=== PATIENT | female | born 1995 | race Caucasian/White ===

== ENCOUNTER 2020-05-14 14:43 | Outpatient (RCR) | payer OTHER, SELFPAY | END 2020-08-10 23:59 | disposition home or self-care (01) | LOC: ANHLAB 14:43 | PROVIDERS: Visit Provider Obstetrics & Gynecology | DX: Z87.59 Personal history of other complications of pregnancy, childbirth and the puerperium (principal) | CPT/HCPCS: 36415; 84702 ==

== ENCOUNTER 2020-10-18 15:29 | Outpatient (CLI) | payer OTHER, SELFPAY ==
[2020-10-18 16:01] VITALS: BP 115/79; PULSE 82
[2020-10-18 16:16] VITALS: BP 111/75; BP 115/79; PULSE 79; PULSE 84
== END 2020-10-18 16:15 | disposition home or self-care (01) ==
LOC: ANHOBOP 15:36 → ANHOBPP 15:36
PROVIDERS: Visit Provider Obstetrics & Gynecology
DX: O41.8X90 Other specified disorders of amniotic fluid and membranes, unspecified trimester, not applicable or unspecified (principal); Z3A.00 Weeks of gestation of pregnancy not specified
CPT/HCPCS: 59025; 84112; 99199

== ENCOUNTER 2020-10-25 15:12 | Outpatient (CLI) | payer OTHER, SELFPAY ==
[2020-10-25 16:49] LABS: Hematocrit 34.7 % (37.0-47.0); Hemoglobin 11.5 g/dL (12.0-15.0); Mean Platelet Volume 9.7 fl (7.4-10.4); Platelet Count Result 248 k/mm3 (150-375)
[2020-10-25 16:57] LABS: Glucose 1 Hour PP 50gm Dose 121 mg/dL
[2020-10-25 17:39] LABS: HIV 1/2 Ab P24 Ag Result Negative (Negative)
[2020-10-25 18:20] LABS: Rubella IgG Antibody 44.6 IU/ML
[2020-10-25 18:35] LABS: Hepatitis B Surface Anti Res Negative; Hepatitis C Virus Antibody Negative (Negative)
[2020-10-26 09:54] LABS: Hepatitis B Surface Antigen Negative (Negative)
[2020-10-26 10:09] LABS: Rapid Plasma Reagin Non-Reactive (NonReactive)
== END 2020-10-25 15:13 | disposition home or self-care (01) ==
LOC: ANHLAB 15:13
PROVIDERS: Visit Provider Obstetrics & Gynecology
DX: Z36.89 Encounter for other specified antenatal screening (principal); Z3A.00 Weeks of gestation of pregnancy not specified
CPT/HCPCS: 36415; 82947; 85014; 85018; 85049; 86592; 86703; 86706; 86762; 86803; 86850; 86900; 86901; 87340; G0432

== ENCOUNTER 2020-12-15 16:20 | Outpatient (CLI) | payer OTHER, SELFPAY ==
[2020-12-15 16:40] VITALS: BP 141/90; PULSE 86; RESP 16; TEMP 36.7
[2020-12-15 16:45] VITALS: BP 136/88; PULSE 86; RESP 16
[2020-12-15 17:01] LABS: Basophils Absolute Auto 0.1 K/mm3 (0.0-0.1); Basophils Percent Auto 0.6 % (0.2-1.2); Eosinophils Absolute Auto 0.1 K/mm3 (0-0.3); Eosinophils Percent Auto 0.7 % (0-4.4); Hemoglobin 11.7 g/dL (12.0-15.0); Immature Granulocyte Absolute 0.09 K/mm3 (0.00-0.031); Immature Granulocyte Percent A 0.9 % (0-0.5); Lymphocytes Percent Auto 21.9 % (18.3-44.2); Mean Corpuscular HGB Conc 33.4 g/dl (32-36); Mean Corpuscular Hemoglobin 29.7 pg (26-34); Mean Corpuscular Volume 88.8 fl (80-100); Monocytes Absolute Auto 0.7 K/mm3 (0.1-0.6); Monocytes Percent Auto 6.6 % (2.6-8.5); Neutrophils Absolute Auto 7.3 K/mm3 (1.3-6.7); Neutrophils Percent Auto 69.3 % (45.5-73.1); Platelet Count Result 235 k/mm3 (150-375); Red Blood Count 3.94 M/mm3 (4.2-5.4); Red Cell Distribution Width 13.3 % (11.5-14.5); White Blood Count 10.5 K/mm3 (4.5-10.0)
[2020-12-15 17:13] LABS: Alanine Aminotransferase 14 U/L (4-35); Albumin Level 3.6 g/dL (3.5-5.1); Alkaline Phosphatase 126 U/L (38-126); Anion Gap 7 mmol/L (8-16); Aspartate Amino Transferase 20 U/L (14-36); Bilirubin,Total 0.3 mg/dL (0.2-1.3); Blood Urea Nitrogen 8 mg/dL (7-17); Calcium 8.7 mg/dL (8.4-10.2); Carbon Dioxide 22 mmol/L (22-30); Chloride 107 mmol/L (98-107); Estimated Glomerular Filt Rate > 60; Glucose 95 mg/dL (65-105); Potassium 3.9 mmol/L (3.4-5.0); Sodium 136 mmol/L (137-145); Uric Acid 5.8 mg/dL (2.5-7.5)
[2020-12-15 17:16] LABS: Add Urine Microscopic? YES; Appearance Urine Cloudy (Clear); Bacteria Urine 4+ /hpf; Bilirubin Urine Negative (Negative); Blood Urine Negative (Negative); Color Urine Yellow (Yellow); Glucose Urine UA Negative (Negative); Ketones Urine Negative (Negative); Leukocyte Esterase Ur 3+ LEU/UL (NEGATIVE); Nitrate Urine Negative (Negative); Protein Urine Negative (Negative); Specific Grav Ur 1.008 (1.001-1.035); Squamous Epithelial Cell Urine Many /hpf (Few); Transitional Epi Cells Urine Rare /hpf (None Seen); Urobilinogen Urine Negative mg/dL (<2.0)
--- NOTE | 2020-12-15 17:25 | PC.NURSE ---
called Dr. Baker and updated pt BP and PIH lab result. discharge order received
[2020-12-15 17:30] VITALS: BP 128/81; PULSE 86
[2020-12-15 17:31] LABS: Creatinine Urine 42.3 mg/dL; Total Protein Urine Random 14 mg/dL; Ur Ttl Prot Creatinine Ratio 0.33 mg/mg (0-0.20)
== END 2020-12-15 17:30 | disposition home or self-care (01) ==
LOC: ANHOBOP 16:23
PROVIDERS: Visit Provider Obstetrics & Gynecology
DX: O13.9 Gestational [pregnancy-induced] hypertension without significant proteinuria, unspecified trimester (principal); Z3A.00 Weeks of gestation of pregnancy not specified
CPT/HCPCS: 36415; 59025; 80053; 81001; 82570; 84156; 84550; 85025; 87086

== ENCOUNTER 2020-12-24 13:35 | Outpatient (RCR) | payer OTHER, SELFPAY ==
[2020-12-24 14:20] VITALS: BP 126/75; PULSE 93
== END 2020-12-28 08:04 | disposition home or self-care (01) ==
LOC: ANHOBOP 13:35
PROVIDERS: Visit Provider Advanced Practice Midwife
DX: O13.3 Gestational [pregnancy-induced] hypertension without significant proteinuria, third trimester (principal); Z3A.36 36 weeks gestation of pregnancy
CPT/HCPCS: 59025

== ENCOUNTER 2020-12-27 05:08 | Inpatient (IN) | payer OTHER, SELFPAY ==
[2020-12-27] VITALS (96 sets, daily range): BP systolic 98–157; BP diastolic 63–119; PULSE 55–95; RESP 12–18; TEMP 36.3–37.2; O2SAT 96–100; BMI 34.5
--- NOTE | 2020-12-27 05:08 | LDADM ---
This patient, Mary Mclean, was admitted to Labor/Delivery/Recovery 102 on 12/27/20 at 05:08. Plans for labor, pain management and were discussed with patient. Patient/family oriented to hospital policies and general routines including ID bracelet, bed and alarms, visiting hours, pain management, procedures, bathroom and other care routines, personal items, smoking policy, room service/diet and guest tray routines, security routines, and visiting hours. Patient/Family are encouraged to report perceived risks to care and to ask questions if they do not understand what they are told or what they should do. See OBIX for further documentation.
[2020-12-27 06:11] LABS: Uric Acid 5.8 mg/dL (2.5-7.5)
[2020-12-27 06:18] LABS: Alanine Aminotransferase 13 U/L (4-35); Albumin Level 3.2 g/dL (3.5-5.1); Alkaline Phosphatase 128 U/L (38-126); Anion Gap 6 mmol/L (8-16); Aspartate Amino Transferase 21 U/L (14-36); Bilirubin,Total 0.2 mg/dL (0.2-1.3); Blood Urea Nitrogen 8 mg/dL (7-17); Calcium 8.7 mg/dL (8.4-10.2); Carbon Dioxide 22 mmol/L (22-30); Chloride 108 mmol/L (98-107); Estimated CRCL calculation 150 ml/min; Estimated Glomerular Filt Rate > 60; Glucose 109 mg/dL (65-105); Potassium 4.1 mmol/L (3.4-5.0); Sodium 136 mmol/L (137-145)
[2020-12-27] MEDS: LACTATED RINGERS 1,000 ML 125 ML IV CONT (06:23)
[2020-12-27] MEDS: OXYTOCIN 30 UNITS/NS 500 ML 30 UNITS/500 ML BAG IV CONT (06:23)
[2020-12-27 06:35] LABS: Basophils Percent Auto 0.5 % (0.2-1.2); Eosinophils Absolute Auto 0.1 K/mm3 (0-0.3); Eosinophils Percent Auto 1.2 % (0-4.4); Hematocrit 32.2 % (37.0-47.0); Hemoglobin 10.8 g/dL (12.0-15.0); Immature Granulocyte Absolute 0.09 K/mm3 (0.00-0.031); Immature Granulocyte Percent A 1.1 % (0-0.5); Lymphocytes Absolute Auto 2.63 K/mm3 (0.9-3.2); Lymphocytes Percent Auto 31.3 % (18.3-44.2); Mean Corpuscular HGB Conc 33.5 g/dl (32-36); Mean Corpuscular Hemoglobin 29.8 pg (26-34); Mean Corpuscular Volume 88.7 fl (80-100); Mean Platelet Volume 10.2 fl (7.4-10.4); Monocytes Absolute Auto 0.6 K/mm3 (0.1-0.6); Monocytes Percent Auto 7.4 % (2.6-8.5); Neutrophils Absolute Auto 4.9 K/mm3 (1.3-6.7); Neutrophils Percent Auto 58.5 % (45.5-73.1); Platelet Count Result 213 k/mm3 (150-375); Red Blood Count 3.63 M/mm3 (4.2-5.4); Red Cell Distribution Width 13.3 % (11.5-14.5); White Blood Count 8.4 K/mm3 (4.5-10.0)
--- NOTE | 2020-12-27 07:14 | WPDANESEPP ---
Anes - Eval Pre Procedure Procedure: labor epidural Date/Time: 12/27/20 07:14 Preop Diagnosis: labor pain Pre Op Diagnosis: IOL Patient Data Age: 25 Gender: F Height: 5 ft 8 in Weight: 103 kg Last Vital Signs Pulse 70 12/27/20 07:01 BP 110/63 12/27/20 07:01 Allergies Allergy/AdvReac Type Severity Reaction Status Date / Time No Known Allergies Allergy Verified 12/15/20 12:49 Home Medications Medication Instructions Recorded Confirmed Type prenat.vits,micheline,[id number] 1 tablet PO DAILY 12/15/20 12/27/20 History [ #2] Laboratory Tests 12/27/20 12/27/20 12/27/20 05:46 05:46 05:46 WBC RBC Hgb Hct MCV MCH MCHC RDW Plt Count MPV Immature Gran % (Auto) Neut % (Auto) Lymph % (Auto) [place] % (Auto) Eos % (Auto) Baso % (Auto) Lymph # (Auto) [place] # (Auto) Eos # (Auto) Baso # (Auto) Abs Immat Gran (auto) Absolute Neuts (auto) Absolute Nucleated RBC Nucleated RBC % Sodium 136 mmol/L L mmol/L (137-145) Potassium 4.1 mmol/L mmol/L (3.4-5.0) Chloride 108 mmol/L H mmol/L (98-107) Carbon Dioxide 22 mmol/L mmol/L (22-30) Anion Gap 6 mmol/L L mmol/L (8-16) BUN 8 mg/dL mg/dL (7-17) Creatinine 0.60 mg/dL L mg/dL (0.7-1.0) Estim Creat Clear Calc 150 ml/min ml/min Estimated GFR > 60 (59 - ) Glucose 109 mg/dL H mg/dL (65-105) Uric Acid 5.8 mg/dL mg/dL (2.5-7.5) Calcium 8.7 mg/dL mg/dL (8.4-10.2) Total Bilirubin 0.2 mg/dL mg/dL (0.2-1.3) AST 21 U/L U/L (14-36) ALT 13 U/L U/L (4-35) Alkaline Phosphatase 128 U/L H U/L (38-126) Total Protein 6.0 g/dL L g/dL (6.3-8.2) Albumin 3.2 g/dL L g/dL (3.5-5.1) RPR Pending 12/27/20 06:20 WBC 8.4 K/mm3 K/mm3 (4.5-10.0) RBC 3.63 M/mm3 L M/mm3 (4.2-5.4) Hgb 10.8 g/dL L g/dL (12.0-15.0) Hct 32.2 % L % (37.0-47.0) MCV 88.7 fl fl (80-100) MCH 29.8 pg pg (26-34) MCHC 33.5 g/dl g/dl (32-36) RDW 13.3 % % (11.5-14.5) Plt Count 213 k/mm3 k/mm3 (150-375) MPV 10.2 fl fl (7.4-10.4) Immature Gran % (Auto) 1.1 % H % (0-0.5) Neut % (Auto) 58.5 % % (45.5-73.1) Lymph % (Auto) 31.3 % % (18.3-44.2) [place] % (Auto) 7.4 % % (2.6-8.5) Eos % (Auto) 1.2 % % (0-4.4) Baso % (Auto) 0.5 % % (0.2-1.2) Lymph # (Auto) 2.63 K/mm3 K/mm3 (0.9-3.2) [place] # (Auto) 0.6 K/mm3 K/mm3 (0.1-0.6) Eos # (Auto) 0.1 K/mm3 K/mm3 (0-0.3) Baso # (Auto) 0.0 K/mm3 K/mm3 (0.0-0.1) Abs Immat Gran (auto) 0.09 K/mm3 H K/mm3 (0.00-0.031) Absolute Neuts (auto) 4.9 K/mm3 K/mm3 (1.3-6.7) Absolute Nucleated RBC 0.0 K/mm3 K/mm3 (0.0-0.012) Nucleated RBC % 0.0 % % (0.0-0.2) Sodium Potassium Chloride Carbon Dioxide Anion Gap BUN Creatinine Estim Creat Clear Calc Estimated GFR Glucose Uric Acid Calcium Total Bilirubin AST ALT Alkaline Phosphatase Total Protein Albumin RPR Patient hx anesthesia problems: none Family hx anesthesia problems: none PMFSH Family History Family History (Updated 12/15/20 @ 12:51 by Seda Burks RN) Mother Breast cancer Father Eye cancer Social History Social History Smoking status: Never smoker Substance use: never Spiritual care concerns: No Exam Day of Procedure 12/27/20 07:14
--- NOTE | 2020-12-27 08:01 | WPDOBADMIT ---
Obstetrics - Admit Note Admission Note: record reviewed. No pertinent additions to the history and/or any subsequent changes in the physical findings that are not consistent with the expected course of the were found. MIL for GHTN, pitocin started Additions to the history and/or subsequent changes in the physical findings follow. None.
[2020-12-27 12:01] LABS: Rapid Plasma Reagin Non-Reactive (NonReactive)
--- NOTE | 2020-12-27 12:17 | PM.OBPNLAB ---
Pain Control Date/time seen: 12/27/20 12:17 SVE /-2 AROM moderate amount of clear odorless fluid
--- NOTE | 2020-12-27 12:21 | P.DS_ITS ---
DS: Admitting Diagnosis Admitting Diagnosis Admitting Diagnosis: Preeclampsia OB - DS: Summary OB Procedures : Other (bp management) OB Procedures Intrapartum: Other (transfer) OB Procedures: : None Peripartum Data Procedures: pt transferred Status at Discharge Functional status at discharge: bed bound Overall status at discharge: patient is not back to baseline Time Spent with Patient Time attestation: Total time spent providing and/or coordinating discharge services: DS: Data Data Completed and Pending Labs on day of discharge: Labs from last 24 hours 12/27/20 12/27/20 12/27/20 06:20 05:46 05:46 WBC 8.4 RBC 3.63 L Hgb 10.8 L Hct 32.2 L MCV 88.7 MCH 29.8 MCHC 33.5 RDW 13.3 Plt Count 213 MPV 10.2 Immature Gran % (Auto) 1.1 H Neut % (Auto) 58.5 Lymph % (Auto) 31.3 [place] % (Auto) 7.4 Eos % (Auto) 1.2 Baso % (Auto) 0.5 Lymph # (Auto) 2.63 [place] # (Auto) 0.6 Eos # (Auto) 0.1 Baso # (Auto) 0.0 Abs Immat Gran (auto) 0.09 H Absolute Neuts (auto) 4.9 Absolute Nucleated RBC 0.0 Nucleated RBC % 0.0 Sodium 136 L Potassium 4.1 Chloride 108 H Carbon Dioxide 22 Anion Gap 6 L BUN 8 Creatinine 0.60 L Estim Creat Clear Calc 150 Estimated GFR > 60 Glucose 109 H Uric Acid Calcium 8.7 Total Bilirubin 0.2 AST 21 ALT 13 Alkaline Phosphatase 128 H Total Protein 6.0 L Albumin 3.2 L RPR Blood Type O Positive Antibody Screen Negative 12/27/20 12/27/20 05:46 05:46 WBC RBC Hgb Hct MCV MCH MCHC RDW Plt Count MPV Immature Gran % (Auto) Neut % (Auto) Lymph % (Auto) [place] % (Auto) Eos % (Auto) Baso % (Auto) Lymph # (Auto) [place] # (Auto) Eos # (Auto) Baso # (Auto) Abs Immat Gran (auto) Absolute Neuts (auto) Absolute Nucleated RBC Nucleated RBC % Sodium Potassium Chloride Carbon Dioxide Anion Gap BUN Creatinine Estim Creat Clear Calc Estimated GFR Glucose Uric Acid 5.8 Calcium Total Bilirubin AST ALT Alkaline Phosphatase Total Protein Albumin RPR Non-reactive Blood Type Antibody Screen Discharge Plan Discharge Patient Disposition: Acute Care Hospital Discharge Medications: Discontinued #2 Tablet 1 tablet PO DAILY RF: 0 Date of admission: 12/27/20 05:08 Primary Care Provider: PHYSICIAN,DIRECTOR FOOD AND BEVERAGE Admitting Provider: Rakan Baker Attending physician on admission: Rakan Baker
--- NOTE | 2020-12-27 14:19 | PM.OBPRVD ---
OB - Delivery Note Procedure Delivery date: 12/27/20 Procedure: vaginal delivery Intrapartal events: None Induction method: none, AROM and per pitocin protocol Delivery monitor: external FHT and external uterine Route of delivery: Laceration Description: Perineal - 1st Degree Delivery repair: vicryl Specimen: Yes Quantitative Blood Loss (ml): 217 Anesthesia type: Epidural Disposition: other () [place] [facility] Date of : 12/27/20 Time of : 14:02 Weeks of gestation at delivery: 37 Infant gender: Female Weight (pounds): 7 Weight (ounces): 1 presentation: vertex position: Right Occiput Anterior Placenta delivery description: Spontaneous cord vessel description: 3 Vessels and Clamped/Cut score one minute: 9 score five minutes: 9 Narrative: mother and baby skin to skin in stable condition
[2020-12-27] MEDS: OXYTOCIN 30 UNITS/NS 500 ML 30 UNITS/500 ML BAG 125 UNITS IV CONT (14:32)
[2020-12-27] MEDS: BENZOCAINE 20% AER SPR (*SP) 56 GM CAN 1 SPRAY TOPICAL (16:21)
[2020-12-27] MEDS: WITCH HAZEL 40 PADS 1 PAD TOPICAL (16:21)
[2020-12-27] MEDS: IBUPROFEN 600 MG TABLET PO ×2 (16:22→23:05)
--- NOTE | 2020-12-27 18:00 | PC.NURSE ---
1639 Pt admitted to room 276 per wheelchair from labor and delivery after vaginal delivery of viable female today at 140[address] Dr[address] Baker. /FOB present. Couple oriented to room, staffing and procedures; admission folder reviewed, including Mother Baby Guide. Pt's VSS and assessment WNL.
[2020-12-27] MEDS: ACETAMINOPHEN 325 MG TABLET 650 MG PO (19:32)
[2020-12-28] MEDS: ACETAMINOPHEN 325 MG TABLET 650 MG PO ×3 (01:43→15:14)
[2020-12-28] MEDS: IBUPROFEN 600 MG TABLET PO ×3 (04:43→18:14)
[2020-12-28 05:00] VITALS: BP 112/74; PULSE 68; RESP 13; TEMP 36.3; O2SAT 97
[2020-12-28 05:39] LABS: Hematocrit 31.5 % (37.0-47.0); Hemoglobin 10.4 g/dL (12.0-15.0)
--- NOTE | 2020-12-28 07:37 | WPDANLDPN2 ---
Anes-Prog Note L&D Date/Time: 12/28/20 07:37 Comfortable throughout: labor and delivery Neuraxial method: epidural Epidural/Spinal procedure site: clean & non-tender Neuro status: Neuro function grossly intact. Cardiovascular status: normal Respiratory status: normal Airway patency: baseline Mental status: baseline Post-Op hydration status: normal Vital Signs: Last Vital Signs Temp 36.3 C L 12/28/20 05:00 Pulse 68 12/28/20 05:00 Resp 13 12/28/20 05:00 BP 112/74 12/28/20 05:00 Pulse Ox 97 12/28/20 05:00 Pain score (VAS): 3 I/O: Intake & Output 12/27/20 12/27/20 12/28/20 15:59 23:59 07:59 Intake Total 1200 1100 Output Total 217 1584 1000 Balance 983 -1584 100 Post-procedural complaints: none Patient feedback: Patient satisfied with anesthetic care.
[2020-12-28 08:00] VITALS: BP 112/74; BP 133/90; PULSE 68; PULSE 75; RESP 13; RESP 18; TEMP 36.3; TEMP 36.4; O2SAT 97
[2020-12-28] MEDS: WITCH HAZEL 40 PADS 1 PAD TOPICAL (08:08)
[2020-12-28] MEDS: LANOLIN (LANSINOH) 7.5 GM CREAM 1 APPLIC TOPICAL (08:08)
[2020-12-28] MEDS: BENZOCAINE 20% AER SPR (*SP) 56 GM CAN 1 SPRAY TOPICAL (08:08)
[2020-12-28] MEDS: DOCUSATE SODIUM 100 MG CAPSULE PO ×2 (08:09→15:14)
[2020-12-28] MEDS: MULTIVIT/MIN/PREN/FOL AC/IRON TABLET 1 TAB PO (08:11)
--- NOTE | 2020-12-28 08:16 | PM.OBPNVD ---
OB - PN: Subj Subjective Date/time seen: 12/28/20 08:16 Patient comments: no complaints baby status: doing well OB - PN: Obj Data Labs CBC & Chem 7: 12/28/20 04:51 12/27/20 05:46 Labs: Laboratory Results - last 24 hr 12/27/20 12/27/20 12/28/20 05:46 05:46 04:51 Hgb 10.4 L Hct 31.5 L RPR Non-reactive Blood Type O Positive Antibody Screen Negative OB - PN A/P Plan day: 1 Plan: routine care and discharge home Comments: RTC 4 weeks Time Spent With Patient Time: Total time spent is greater than 50% in coordination of care (as documented) at patient's floor/unit and/or counseling patient: Time with patient: less than 15 minutes Review of Systems Review of Systems: All systems reviewed & are unremarkable except as noted in HPI and below Exam Narrative: Exam Narrative: Fundus firm and vaginal flow controlled. No lower ext redness, warmth, or edema. Negative homans. Const: General: comfortable Chest: Breast/axilla inspection: normal inspection of the breasts Resp: Effort & Inspection: normal respiratory effort Cardio: Rate: regular rate GI: GI Palp: Yes Soft to palpation Psych: Appearance: grossly normal Affect: normal affect Attitude: cooperative Thought content: Yes Normal thought content present Judgement: Good judgement present (Psych)
--- NOTE | 2020-12-28 11:00 | PC.NURSE ---
Patient was given the opportunity to view the discharge video Mother & Baby Care, The First Two Weeks and to ask questions. Patient declined viewing the video and has been given the mother/baby guide for home reference.
[2020-12-28] MEDS: TETANUS,DIPHTHERIA,AC PERTUSSIS ADULT (0.5 ML) BOOSTRIX IM (11:34)
[2020-12-28 11:57] VITALS: PULSE 72; RESP 18; TEMP 37.2
[2020-12-28 16:00] VITALS: BP 132/69; BP 133/90; PULSE 72; RESP 18; TEMP 37.2; O2SAT 97
--- NOTE | 2020-12-28 16:21 | PC.NURSE ---
Self care and infant care discharge instructions given to parents including follow up visit date and time. Mother verbalized understanding. No questions or concerns voiced.
[2020-12-30 10:50] VITALS: BP 156/97; PULSE 86; RESP 16; TEMP 36.9; O2SAT 99
--- NOTE | 2021-01-03 07:22 | PM.OBDSVD ---
DS: Admitting Diagnosis Admitting Diagnosis Admitting Diagnosis: JOANN GARNET HEALTHEliceo OB - DS: Summary OB Procedures : None OB Procedures Intrapartum: Spontaneous Vag Delivery OB Procedures: : None Time Spent with Patient Time attestation: Total time spent providing and/or coordinating discharge services: DS: Data Data Completed and Pending Completed studies during hospitalization: Pending at discharge 12/27/20 14:06 Surgical [PTH] Routine Discharge Plan Discharge Attending physician on discharge: Latrice Fu Consulting providers: Latrice Fu ; Isela Dimas Discharging Clinician: Isela Dimas Patient Disposition: Home, Self-Care Activity: pelvic rest Diet: as tolerated Discharge Instructions: Education: Mom and Baby Guide Given to: Mother Follow-Up: Call your delivering provider's office for an appointment to be seen in: 4 Weeks Mom and baby should come to the [facility] for the follow-up appointment. Appointment Date/Time: Sat. December 30, 2020 at 11:00 am What to expect at your follow-up visit: Blood Pressure Check Physical Assessment Call [phone] if you are unable to keep your appointment time. BREAST CARE: * Wear a snug supportive bra. * For engorgement discomfort: Breast Feeding: * Apply warm moist washcloths * Express milk as needed to relieve engorgement * Wear loose clothing * For sore nipples: * Identify correct latch-on * Apply warm moist washcloths before and after nursing * Air dry nipples after nursing * May apply Lansinoh cream to nipples EPISIOTOMY/PERINEAL CARE: * Until bleeding stops, use your jamaal bottle after urinating * Change your pad frequently throughout the day * You may take sitz baths several times a day (fill your bathtub with warm water and soak for 20 minutes.) Do NOT bathe in the water * No tub baths until seen by your physician - You may shower ACTIVITY: * Rest as much as possible. * Do not exercise or lift anything heavier than your baby (such as laundry or other children.) * Avoid stairs or driving as much as possible. * Do not put anything into the vagina. No douching, tampons, or sexual activity until seen by physician. NOTIFY PHYSICIAN IF YOU HAVE ANY QUESTIONS OR IF ANY OF THE FOLLOWING SYMPTOMS OCCUR: * If your episiotomy becomes red, swollen, or more painful than what you have experienced in the hospital. * If your vaginal bleeding becomes foul smelling. * If your vaginal bleeding becomes more heavy than a period or if your bleeding changes from pink to bright red. However, you may pass an occasional walnut-sized clot once or twice for the first week . * If you experience a sharp, shooting pain in you calves. * If you discover a hard, reddened area on your breast or if you experience flu-like symptoms. DIET: * Eat regular, well-balanced meals. * Drink plenty of fluids daily. If , drink to thirst. Follow-up/Referrals: Lartice Fu CNM [Certified Nurse Outboard System Operator] - 4 Weeks Discharge Medications: Continued prenat.vits,micheline,[id number] Tablet 1 tablet PO DAILY RF: 0 No Action ibuprofen [Motrin] 800 mg Tablet 800 mg PO Q6H PRN (Reason: Pain (Scale Score 1-3)) RF: 0 Date of admission: 12/27/20 05:08 Primary Care Provider: PHYSICIAN,REELING MACHINE OPERATOR Admitting Provider: Rakan Baker Attending physician on admission: Rakan Baker Condition: Stable
== END 2020-12-28 18:05 | disposition home or self-care (01) | DRG 560 ==
LOC: ANHLDR 12:22 → ANHOB2 16:47
PROVIDERS: Advanced Practice Midwife; Admitting Provider Obstetrics & Gynecology; Visit Provider Obstetrics & Gynecology
DX: O13.4 Gestational [pregnancy-induced] hypertension without significant proteinuria, complicating childbirth (principal); O70.0 First degree perineal laceration during delivery; O43.113 Circumvallate placenta, third trimester; Z3A.37 37 weeks gestation of pregnancy; Z37.0 Single live birth
CPT/HCPCS: 36415; 80053; 84550; 85014; 85018; 85025; 86592; 86850; 86900; 86901; 88307; 90715; A9270; J2590; J7120

== ENCOUNTER 2021-01-01 15:41 | Outpatient (CLI) | payer OTHER, SELFPAY ==
[2021-01-01] VITALS (15 sets, daily range): BP systolic 132–159; BP diastolic 77–98; PULSE 56–82
[2021-01-01 16:35] LABS: Basophils Percent Auto 0.3 % (0.2-1.2); Eosinophils Absolute Auto 0.1 K/mm3 (0-0.3); Eosinophils Percent Auto 1.4 % (0-4.4); Hematocrit 32.5 % (37.0-47.0); Hemoglobin 10.5 g/dL (12.0-15.0); Immature Granulocyte Absolute 0.05 K/mm3 (0.00-0.031); Immature Granulocyte Percent A 0.6 % (0-0.5); Lymphocytes Absolute Auto 1.57 K/mm3 (0.9-3.2); Lymphocytes Percent Auto 18.2 % (18.3-44.2); Mean Corpuscular HGB Conc 32.3 g/dl (32-36); Mean Corpuscular Hemoglobin 29.2 pg (26-34); Mean Corpuscular Volume 90.3 fl (80-100); Mean Platelet Volume 10.4 fl (7.4-10.4); Monocytes Absolute Auto 0.5 K/mm3 (0.1-0.6); Neutrophils Absolute Auto 6.3 K/mm3 (1.3-6.7); Neutrophils Percent Auto 73.5 % (45.5-73.1); Platelet Count Result 171 k/mm3 (150-375); Red Cell Distribution Width 13.5 % (11.5-14.5); White Blood Count 8.6 K/mm3 (4.5-10.0)
[2021-01-01 16:49] LABS: Platelet Estimate Adequate (Adequate)
[2021-01-01 16:52] LABS: Alanine Aminotransferase 33 U/L (4-35); Albumin Level 3.1 g/dL (3.5-5.1); Alkaline Phosphatase 122 U/L (38-126); Anion Gap 5 mmol/L (8-16); Aspartate Amino Transferase 61 U/L (14-36); Bilirubin,Total 0.5 mg/dL (0.2-1.3); Blood Urea Nitrogen 13 mg/dL (7-17); Calcium 7.8 mg/dL (8.4-10.2); Carbon Dioxide 20 mmol/L (22-30); Chloride 111 mmol/L (98-107); Estimated Glomerular Filt Rate > 60; Glucose 84 mg/dL (65-105); Potassium 4.4 mmol/L (3.4-5.0); Sodium 136 mmol/L (137-145); Uric Acid 6.3 mg/dL (2.5-7.5)
--- NOTE | 2021-01-01 18:30 | PC.NURSE ---
Patient is resting quietly and holding . No complaints at this time.
[2021-01-01] MEDS: IBUPROFEN 600 MG TABLET PO (21:28)
[2021-01-01 21:36] LABS: Hematocrit 32.4 % (37.0-47.0); Hemoglobin 10.7 g/dL (12.0-15.0); Mean Corpuscular Hemoglobin 29.6 pg (26-34); Mean Corpuscular Volume 89.8 fl (80-100); Mean Platelet Volume 9.4 fl (7.4-10.4); Platelet Count Result 219 k/mm3 (150-375); Red Blood Count 3.61 M/mm3 (4.2-5.4); Red Cell Distribution Width 13.7 % (11.5-14.5); White Blood Count 8.8 K/mm3 (4.5-10.0)
[2021-01-01 21:45] LABS: Alanine Aminotransferase 30 U/L (4-35); Albumin Level 3.2 g/dL (3.5-5.1); Alkaline Phosphatase 100 U/L (38-126); Anion Gap 4 mmol/L (8-16); Aspartate Amino Transferase 26 U/L (14-36); Bilirubin,Total 0.2 mg/dL (0.2-1.3); Blood Urea Nitrogen 13 mg/dL (7-17); Calcium 8.5 mg/dL (8.4-10.2); Carbon Dioxide 24 mmol/L (22-30); Chloride 110 mmol/L (98-107); Estimated Glomerular Filt Rate > 60; Glucose 84 mg/dL (65-105); Potassium 3.7 mmol/L (3.4-5.0); Sodium 138 mmol/L (137-145); Uric Acid 6.4 mg/dL (2.5-7.5)
--- NOTE | 2021-01-01 22:15 | PC.NURSE ---
Lab results called to Pietro Dimas. Pt feels comfortable with going home and monitoring blood pressure at home. Pt will return if blood pressure incrases (160/100) or if she has any symptoms or concerns.
== END 2021-01-01 23:27 | disposition home or self-care (01) ==
LOC: ANHOBOP 15:51 → ANHOBPP 15:52
PROVIDERS: PCP Advanced Practice Midwife; Visit Provider Obstetrics & Gynecology
DX: O13.9 Gestational [pregnancy-induced] hypertension without significant proteinuria, unspecified trimester (principal); Z3A.00 Weeks of gestation of pregnancy not specified
CPT/HCPCS: 36415; 80053; 84550; 85025; 85027; 99199; A9270

== ENCOUNTER 2022-04-18 17:57 | Emergency (ER) | payer OTHER, SELFPAY ==
[2022-04-18 18:05] VITALS: BP 142/107; PULSE 100; RESP 16; TEMP 36.6; O2SAT 100
--- NOTE | 2022-04-18 18:05 | ED.URI ---
HPI - URI/Sore Throat General Chief Complaint: Upper Respiratory Infection Stated Complaint: Fever/Sore Throat Time Seen by Provider: 04/18/22 18:05 Source: patient Mode of arrival: ambulatory Limitations: no limitations History of Present Illness HPI Narrative: Ms. Mclean is a 26-year-old female patient presenting to the clinic today with complaints of fever, headache, and sore throat x 2-3 days. She reports fever highest of 101F. Denies any cough or nasal congestion. Has taken 2 covid test and both have been negative. MD elicited complaint: fever and sore throat Related Data Allergies Allergy/AdvReac Type Severity Reaction Status Date / Time No Known Allergies Allergy Verified 04/18/22 18:09 Review of Systems Review of Systems: Pertinent positives per HPI. Patient denies any chills, rash, visual changes, dizziness, cough, shortness of breath, chest pain, palpitations, nausea, vomiting, diarrhea, constipation, abdominal pain, or any urinary issues. [facility] Family History Family History Mother Breast cancer Father Eye cancer Social History Social History Smoking status: Never smoker Substance use: never Spiritual care concerns: No Comments At the time of my signature, I reviewed and agree with the nursing past medical, surgical, social, and family history. There is no relevant family history pertinent to the patient complaint. Exam Narrative: General: Well-developed, well nourished, in no apparent distress Head: Normocephalic, atraumatic Eyes: Pupils equally round and reactive to light bilaterally, EOM intact, sclera and conjunctive clear, no discharge, lids normal Ears: TMs intact, dull, and congested, ear canals clear, no drainage, grossly hearing normal. Nose: Nares patent, no discharge, no inflammation, no sinus tenderness. Mouth: Oral pharynx without lesions or masses, good dentition, MMM. oropharynx red, with tonsillar enlargement, no exudate noted Neck: Supple, trachea midline, enlargement of anterior cervical nodes, no thyroid masses or goiter palpable. Cardio: Regular rate and rhythm, s1 and s2 normal, no murmur appreciated. Resp: Clear to auscultation bilaterally, no rhonchi, rales, wheezing or rubs Course Course Emergency Course: Portions of this record may have been created with voice recognition software. Level of Care: Express Care Visit Vital Signs Vital signs: Vital signs reviewed MDM - URI/Sore Throat MDM Narrative Medical decision making narrative: At the time of visit patient is resting comfortably on the exam table. Centor criteria 4 out of 4. Strep screen was negative in the clinic however she is 4 out of 4 Centor criteria so I will empirically treat her for strep pharyngitis.This was discussed with the patient and she voiced understanding of discharge instructions and agrees to treatment plan. Differential Diagnosis Differential diagnosis: Likely sinusitis, viral infection, influenza and pharyngitis Discharge Plan Discharge Clinical Impression: Pharyngitis Patient Disposition: Home, Self-Care Condition: Stable Instructions: Antibiotic Form, Pharyngitis (ED) Additional Instructions: Take prescription medications only as prescribed-amoxicillin Increase fluids and stay well hydrated Tylenol/motrin for pain/fever Flonase and OTC antihistamines as directed Vicks vapor rub to open sinuses Sinus rinses for congestion Cepacol spray, cough drops, throat lozenges, warm tea with honey/lemon, gargle salt water to soothe throat BRAT diet for diarrhea Clear liquids x 24 hours then advance as tolerated for nausea/vomiting May return to the clinic if symptoms worsen Go to the ED if you develop a worsening in your condition- high fever not controlled by Tylenol or Motrin, dehydration, weakness, lethargy, shortness of breath, or ch
== END 2022-04-18 18:26 | disposition home or self-care (01) ==
PROVIDERS: Emergency Provider Nurse Practitioner Family; PCP Nurse Practitioner Family
DX: J02.9 Acute pharyngitis, unspecified (principal)
CPT/HCPCS: 87081; 87880; 99213; G0463

== ENCOUNTER 2022-09-24 08:12 | Emergency (ER) | payer OTHER, SELFPAY ==
[2022-09-24 08:22] VITALS: BP 144/100; PULSE 104; RESP 16; TEMP 36.6; O2SAT 100
--- NOTE | 2022-09-24 08:32 | ED.URI ---
HPI - URI/Sore Throat General Chief Complaint: Upper Respiratory Infection Stated Complaint: sore throat Time Seen by Provider: 09/24/22 08:33 History of Present Illness HPI Narrative: 27 yo female presented for c/o sore throat for 2 days. Also reports headache and hot flashes. Endorses has strep throat. Took Tylenol for symptoms. denies shortness of breath, wheezing, nausea, vomiting, diarrhea. Related Data Allergies Allergy/AdvReac Type Severity Reaction Status Date / Time No Known Allergies Allergy Verified 09/24/22 08:28 Review of Systems Review of Systems: Per HPI [facility] Family History Family History Mother Breast cancer Father Eye cancer Social History Social History Smoking status: Never smoker Substance use: never Spiritual care concerns: No Exam Narrative: GENERAL: Ill-appearing, nontoxic EYES: conjunctivae clear ENT: Mucous membranes moist. TMs pearly martinez with normal light reflex bilaterally; no tragal tenderness. Oropharynx erythematous without lesions. Tonsils enlarged 2+and without exudate. No drooling, no hoarseness, no trismus, uvula midline. No tripod positioning, hot potato voice, or soft palate swelling. NECK: Supple. No lymphadenopathy CHEST: Clear to auscultation, breath sounds equal. HEART: Regular rate and rhythm. No murmur heard. SKIN: Warm, dry, no rash. NEURO: Alert and oriented x3. Course Course Emergency Course: Patient is aware of diagnosis, understands and agrees to treatment plan. Anticipatory guidance given. Patient agrees to follow-up as directed and is aware of reasons to seek care at the emergency department. Portions of this record may have been created with voice recognition software Level of Care: Express Care Visit Vital Signs Vital signs: Vital Signs Temperature 97.9 F 09/24/22 08:22 Pulse Rate 104 H 09/24/22 08:22 Respiratory Rate 16 09/24/22 08:22 Blood Pressure 144/100 H 09/24/22 08:22 Pulse Oximetry 100 09/24/22 08:22 Oxygen Delivery Room Air 09/24/22 08:22 Temperature 97.9 F 09/24/22 08:22 Pulse Rate 104 H 09/24/22 08:22 Respiratory Rate 16 09/24/22 08:22 Blood Pressure 144/100 H 09/24/22 08:22 Pulse Oximetry 100 09/24/22 08:22 Oxygen Delivery Room Air 09/24/22 08:22 MDM - URI/Sore Throat MDM Narrative Medical decision making narrative: strep result reviewed with pt. Advise supportive treatments. Patient is appropriate for outpatient treatment and follow-up. Differential Diagnosis Differential diagnosis: Likely upper respiratory infection, viral infection and pharyngitis Discharge Plan Discharge Clinical Impression: Strep pharyngitis Patient Disposition: Home, Self-Care Condition: Stable Instructions: Antibiotic Form Additional Instructions: Your blood pressure reading was elevated (above 120/80) please follow-up with your primary care provider for further evaluation and management. - Take the antibiotic as directed. Fever and sore throat typically resolve within one to three days. Most patients can return to work, school, or daycare after 12 to 24 hours of antibiotic therapy, provided you are fever free and otherwise well. -Eat and drink things that are easy to swallow, like soft foods, cool liquids, tea with honey, or popsicles . -Salt water gargles and/or may use topical anesthetic ( Chloraseptic spray) or lozenges to relieve dryness or throat pain -Alternate Tylenol and ibuprofen as needed for pain and fever as directed. -Frequent hand washing or hand production hardener is one of the best ways to prevent spread of infection. Throw away the toothbrush after 24hours of antibiotic. -Follow up with primary care provider in 2-3 days if condition is not improving -Go to the ER if you have trouble breathing, cannot drink enough fluids, have muffled voice or dr
== END 2022-09-24 08:40 | disposition home or self-care (01) ==
PROVIDERS: Emergency Provider Nurse Practitioner Family; PCP Nurse Practitioner Family
DX: J02.0 Streptococcal pharyngitis (principal)
CPT/HCPCS: 87880; 99213; G0463